=== PATIENT | female | born 1940 | race Caucasian/White ===

== ENCOUNTER 2024-08-22 22:15 | Emergency (ER) | payer MEDICARE, OTHER ==
[~2024-08-22] VITALS: Ht 165.1 cm; Wt 72.6 kg
[2024-08-22] MEDS ORDERED: FERR325T23 PO (22:27)
[2024-08-22] MEDS ORDERED: ALPR0.5T8 PO (22:27)
[2024-08-22] MEDS ORDERED: GUAI100S69 PO (22:27)
[2024-08-22] MEDS ORDERED: DILT30TA2 PO (22:27)
[2024-08-22] MEDS ORDERED: ALBU6.7H9 IH (22:27)
[2024-08-22] MEDS ORDERED: ASPI81TA31 PO (22:27)
[2024-08-22] MEDS ORDERED: FURO40TA5 PO (22:27)
[2024-08-22] MEDS ORDERED: AMIT25TA9 PO (22:27)
[2024-08-22] MEDS ORDERED: TDAP DIPH,PERTUSS,TET VAC/PF 0.5 ML DISP.SYRIN IM ONE (23:10)
[2024-08-22] MEDS: TDAP DIPH,PERTUSS,TET VAC/PF 0.5 ML DISP.SYRIN IM ONE (23:18)
[2024-08-23] MEDS ORDERED: LIDOCAINE HCL 1% 20 ML VIAL ONE (00:30)
[2024-08-23] MEDS: LIDOCAINE HCL 1% 20 ML VIAL TP ONE (00:46)
[2024-08-23] MEDS ORDERED: BACITRACIN ZINC OINT 15 GM TUBE ONE (01:26)
[2024-08-23 01:38] VITALS: O2SAT 98
== END 2024-08-23 01:38 | disposition home or self-care (01) ==
LOC: ER 22:15
DX: S01.01XA Laceration without foreign body of scalp, initial encounter (principal); F32.A Depression, unspecified; F41.9 Anxiety disorder, unspecified; I10 Essential (primary) hypertension; R51.9 Headache, unspecified; J44.9 Chronic obstructive pulmonary disease, unspecified; Z79.82 Long term (current) use of aspirin; Z79.899 Other long term (current) drug therapy; Z88.7 Allergy status to serum and vaccine; W10.9XXA Fall (on) (from) unspecified stairs and steps, initial encounter; Y93.89 Activity, other specified; Y92.89 Other specified places as the place of occurrence of the external cause; Y99.8 Other external cause status
CPT/HCPCS: 12001; 70450; 72125; 90471; 90715; 99285; J3490; A4606; A4663